=== PATIENT | female | born 1940 | race Caucasian/White ===

== ENCOUNTER 2024-10-20 13:49 | Emergency (ER) | payer MEDICARE ==
[2024-10-20] MEDS: traMADol 50 MG Tab PO ONE (15:12)
[2024-10-20] MEDS: Ketorolac 30 MG/ML SDV IVPUSH ONE (15:14)
[2024-10-20] MEDS: Sodium Chloride 0.9% 10 ML Syringe FLUSH PRN (15:15)
[2024-10-20 15:31] LABS: BASOPHILS PERCENT AUTO 0.2 % (0.2-1.5); EOSINOPHILS PERCENT AUTO 0.2 % (0.6-8.1); HEMATOCRIT 37.9 % (34.2-48.2); HEMOGLOBIN 12.7 g/dL (11.4-15.5); LYMPHOCYTES ABSOLUTE AUTO 0.6 x10-3/uL (1.0-4.4); LYMPHOCYTES PERCENT AUTO 9.6 % (18.4-52.1); MEAN CORPUSCULAR HEMOGLOBIN 29.9 pg (23.9-33.9); MEAN CORPUSCULAR HGB CONC 33.4 g/dL (31.9-34.8); MEAN CORPUSCULAR VOLUME 89.6 fL (76.7-100.5); MEAN PLATELET VOLUME 8.8 fL (7.1-12.4); MONOCYTES ABSOLUTE AUTO 0.6 x10-3/uL (0.3-1.0); MONOCYTES PERCENT AUTO 9.6 % (4.4-15.7); NEUTROPHILS ABSOLUTE AUTO 4.9 x10-3/uL (1.5-6.3); NEUTROPHILS PERCENT AUTO 80.4 % (30.8-76.2); PLATELET COUNT,PLT 82 x10(3)uL (151-488); RED BLOOD CELL COUNT 4.24 x10(6)uL (3.60-5.20); RED CELL DISTRIBUTION WIDTH 13.3 % (12.3-16.5); WHITE BLOOD CELL COUNT,WBC 6.1 x10-3/uL (3.0-10.3)
[2024-10-20 15:36] LABS: BLOOD UREA NITROGEN,BUN 23 mg/dL (7-18); BUN/CREATININE RATIO 19.2 (9-20); CALCIUM 8.9 mg/dL (8.6-10.2); CARBON DIOXIDE,CO2 30 mmol/L (21-32); CHLORIDE,CL 106 mmol/L (100-110); CREATININE 1.2 mg/dL (0.55-1.02); ESTIMATED GFR 44 mL/min (>60); GLUCOSE RANDOM 91 mg/dL (80-116); POTASSIUM,K 4.2 mmol/L (3.5-5.3); SODIUM,NA 145 mmol/L (135-145)
[2024-10-20 15:42] LABS: A/G RATIO 1.2; ALANINE AMINOTRANSFERASE,ALT 17 U/L (12-36); ALBUMIN 3.4 g/dL (3.2-4.6); ALKALINE PHOSPHATASE 73 IU/L (56-112); ASPARTATE AMNIOTRANSFERASE,AST 28 IU/L (5-25); BILIRUBIN TOTAL 0.6 mg/dL (0.1-1.3); PROTEIN TOTAL,TP 6.2 g/dL (6.0-8.0)
[2024-10-20 15:58] LABS: TROPONIN I 189.9 pg/mL (4.0-60.3)
[2024-10-20 16:36] LABS: INR 1.04 (1.00-1.24); PROTHROMBIN TIME 10.8 sec (9.0-11.1)
[2024-10-20 16:38] LABS: PTT,PARTIAL THROMBOPLSTIN TIME 26.6 SECONDS (24.4-33.2)
[2024-10-20] MEDS: Aspirin 81 MG Tab.Chew PO ONE (17:22)
[2024-10-20] MEDS: Metolazone 2.5 MG Tab PO ONE (17:22)
[2024-10-20] MEDS: Furosemide 40 MG/4 ML VIAL IVPUSH ONE (17:23)
[2024-10-20] MEDS: Heparin Sodium 5,000 Units/ML Vial IVPUSH ONE (17:25)
[2024-10-20] MEDS: Heparin Sodium/0.45% NaCl 500 ML IV SCH (17:28)
[2024-10-20 20:03] VITALS: BP 86/50; PULSE 79
== END 2024-10-20 19:08 ==
LOC: FB.ED 13:49
DX: I50.9 Heart failure, unspecified (principal); F41.8 Other specified anxiety disorders; I24.9 Acute ischemic heart disease, unspecified; M19.90 Unspecified osteoarthritis, unspecified site; Z90.49 Acquired absence of other specified parts of digestive tract; Z90.710 Acquired absence of both cervix and uterus
CPT/HCPCS: 36415; 71045; 80053; 83880; 84484; 85025; 85610; 85730; 87428; 93005; 93010; 96365; 96366; 96375; 99285; A9270; J1644; J1885; J1940